=== PATIENT | female | born 1970 | race Caucasian/White ===

== ENCOUNTER 2023-09-04 16:16 | Emergency (ER) | payer OTHER, SELFPAY ==
[2023-09-04] VITALS (18 sets, daily range): BP systolic 107–137; BP diastolic 57–86; PULSE 78–95; RESP 16–20; TEMP 36.6; O2SAT 96–100
--- NOTE | ~2023-09-04 | XR_ITS ---
EXAM: XR hip LT 2V w AP pelvis DATE: 09/04/2023 16:49 HISTORY: fall, LT HIP PAIN . COMPARISON: None available. FINDINGS: Decreased mineralization. Fracture of the left acetabular roof with superior displacement of the dominant fracture fragments and left femoral head. No lytic or blastic lesion. The right hip j oint is maintained. No erosion or periosteal change. Soft tissues within normal limits. IMPRESSION: Left acetabular fracture. Recommend CT of the pelvis for further evaluation. Reviewed, dictated and finalized at location K. IMPRESSION: Left acetabular fracture. Recommend CT of the pelvis for further ev aluation.
--- NOTE | ~2023-09-04 | CT_ITS ---
EXAMINATION: CT brain wo con DATE: 09/04/2023 17:47 INDICATION: fall . TECHNIQUE: Computed tomography (CT) of the head was performed without intravenous contrast. The mA wa s adjusted according to patient size. Iterative reconstruction technique was employed. The dose-lengt h product was 832.33 mGy-cm. COMPARISON: None. FINDINGS: Motion artifact present, which required repeat imaging. No acute intracranial hemorrhage or extra-axial fluid collection. No hydrocephalus, mass, or herniation. No acute ischemic infarct. Unremarkable dural venous sinus attenuation. No acute osseous abnormality. The aerated spaces are clear. IMPRESSION: No acute intracranial process. Reviewed, dictated and finalized at location K.
--- NOTE | ~2023-09-04 | CT_ITS ---
EXAMINATION: CT pelvis wo con DATE: 09/04/2023 17:47 INDICATION: Left acetabular fracture. TECHNIQUE: Computed tomography (CT) of the pelvis was performed without intravenous contrast. Automat ed exposure control and iterative reconstruction technique were employed. The dose-length product was 310.36 mGy-cm. COMPARISON: X-ray pelvis, same date FINDINGS: Fractures of the superior and posterior rims of the acetabulum. Superior displacement of fr acture fragments. Fracture lines involve the medial acetabular wall. Superior displacement of left fe moral head. No left femoral fracture. No additional pelvic fracture detected. Small hematoma along th e left pelvic sidewall. Pelvic contents are otherwise unremarkable. IMPRESSION: Left acetabular fracture involving the superior, posterior rim, and medial wall. Superior dislocation of the left femoral head. Reviewed, dictated and finalized at location K. IMPRESSION: Left acetabular fracture involving the superior, posterior rim, and medial wall . Superior dislocation of the left femoral head.
--- NOTE | ~2023-09-04 | XR_ITS ---
EXAM: XR knee LT min 4V DATE: 09/04/2023 18:44 HISTORY: fall, best images possible . COMPARISON: None available. FINDINGS: Decreased mineralization. Transverse fracture of the inferior patella with 2 mm distractio n. No lytic or blastic lesion. Joint spaces are maintained. No erosion or periosteal change. Anterior soft tissue swelling. IMPRESSION: Minimally distracted transverse fracture of the inferior patella. Reviewed, dictated and finalized at location K.
--- NOTE | 2023-09-04 17:18 | ED.FALL ---
HPI - Fall General Chief Complaint: Fall Stated Complaint: hip pain post fall Time Seen by Provider: 09/04/23 17:05 History of Present Illness HPI Narrative: 52-year-old female with a history of type 2 diabetes presents to the emergency department for left hip pain status post fall. Patient states her mother was admitted to hospital and she was discharged today. Patient states she was walking her mother out of the hospital when the toe of her shoe got caught on the ground and she fell, landing on her left hip. She is reporting pain to her left hip and had left knee pain at the time of the fall that has since resolved. She believe she hit her head but is not sure. She denies neck pain or back pain, chest wall pain, abdominal pain, upper extremity injury, vision changes, focal numbness or weakness, loss of consciousness. She is not anticoagulated. Related Data Allergies Allergy/AdvReac Type Severity Reaction Status Date / Time No Known Allergies Allergy Unverified 01/28/18 12:42 Review of Systems Review of Systems: CONSTITUTIONAL: Denies fever, chills, or sweats. EYES: Denies visual changes, redness, or discharge. ENT: Denies rhinorrhea, congestion, sore throat, or otalgia. CARDIOVASCULAR: Denies chest pain, palpitations, or edema. RESPIRATORY: Denies cough or dyspnea. GASTROINTESTINAL: Denies abdominal pain, nausea, vomiting, or diarrhea. GENITOURINARY: Denies dysuria or hematuria. SKIN: Denies rash or itching. MUSCULOSKELETAL: See HPI NEUROLOGIC: Denies headache, numbness, or weakness. PSYCHIATRIC: Denies anxiety or depression. Exam Narrative: GENERAL: Well-appearing, well-nourished, and in no acute distress. HEAD: Normocephalic, atraumatic. EYES: PERRLA and EOMI. ENT: Nares clear, no rhinorrhea or epistaxis. Mucous membranes moist. NECK: No midline spinous tenderness, step-offs or deformities. BACK: No midline thoracolumbar spinous tenderness, step-offs or deformities. CHEST: Clear to auscultation. No respiratory distress. HEART: Regular rate and rhythm. No murmur heard. Normal peripheral pulses. ABDOMEN: Soft, nontender, nondistended, normal active bowel sounds. EXTREMITIES: Mild tenderness to the left hip on palpation, limited ROM of left hip secondary to pain. Full ROM of knee, no tenderness to palpation of left knee. No obvious deformities, edema or ecchymosis. Sensation intact throughout. DP pulses 2+. SKIN: Warm, dry, no rash. NEURO: No focal deficits. Alert and oriented x3. Moving all extremities spontaneously, sensation intact throughout Course Vital Signs Vital signs: Vital Signs Temperature 97.9 F 09/04/23 16:22 Pulse Rate 88 09/04/23 16:22 Respiratory Rate 16 09/04/23 16:22 Blood Pressure 107/57 L 09/04/23 16:22 Pulse Oximetry 99 09/04/23 16:22 Temperature 97.9 F 09/04/23 16:22 Pulse Rate 79 09/04/23 18:31 Respiratory Rate 20 09/04/23 18:31 Blood Pressure 125/82 09/04/23 18:31 Pulse Oximetry 100 09/04/23 18:45 MDM - Fall MDM Narrative Medical decision making narrative: 52-year-old female with history of type 2 diabetes presents to emergency department after a mechanical ground level fall that occurred prior to arrival. Triage vital significant for blood pressure 107/57, otherwise unremarkable. Exam is significant for the above. She is neurovascularly intact. CBC is unremarkable. Chemistries with a glucose of 237, normal bicarb and no anion gap. CT the brain shows no acute intracranial abnormality. X-ray of the left hip concerning for left acetabular fracture with recommendations for a pelvis CT. CT of the pelvis remarkable for left acetabular fracture involving the superior, posterior rim and medial wall. The superior dislocation of the left femoral head. Pending xr of L knee. Labs and imaging discussed with patient and family at bedside. Contacted Orthopedic surgery, Dr. Christianson, who advises transfer to [facility] and agrees that this will
[2023-09-04] MEDS: HYDROcodone/acetaminophen (*CRX) 5-325 MG TABLET 1 TAB PO (17:34)
[2023-09-04 17:55] LABS: Basophils Percent Auto 0.3 % (0.2-1.2); Eosinophils Absolute Auto 0.1 K/mm3 (0-0.3); Eosinophils Percent Auto 1.6 % (0-4.4); Hematocrit 37.1 % (37.0-47.0); Immature Granulocyte Absolute 0.03 K/mm3 (0.00-0.031); Immature Granulocyte Percent A 0.4 % (0-0.5); Lymphocytes Absolute Auto 1.91 K/mm3 (0.9-3.2); Lymphocytes Percent Auto 24.2 % (18.3-44.2); Mean Corpuscular HGB Conc 32.3 g/dl (32-36); Mean Corpuscular Hemoglobin 31.3 pg (26-34); Mean Corpuscular Volume 96.6 fl (80-100); Mean Platelet Volume 9.7 fl (7.4-10.4); Monocytes Absolute Auto 0.5 K/mm3 (0.1-0.6); Monocytes Percent Auto 6.2 % (2.6-8.5); Neutrophils Absolute Auto 5.3 K/mm3 (1.3-6.7); Neutrophils Percent Auto 67.3 % (45.5-73.1); Platelet Count Result 210 k/mm3 (150-375); Red Blood Count 3.84 M/mm3 (4.2-5.4); Red Cell Distribution Width 12.7 % (11.5-14.5); White Blood Count 7.9 K/mm3 (4.5-10.0)
[2023-09-04 18:04] LABS: Anion Gap 7 mmol/L (4-12); Blood Urea Nitrogen 12 mg/dL (7-17); Calcium 8.5 mg/dL (8.4-10.2); Carbon Dioxide 23 mmol/L (22-30); Chloride 108 mmol/L (98-107); Estimated CRCL calculation 89 ml/min; Estimated Glomerular Filt Rate > 60; Glucose 237 mg/dL (65-110); Potassium 3.8 mmol/L (3.4-5.0); Sodium 138 mmol/L (137-145)
[2023-09-04] MEDS: MORPHINE SULFATE (*CRX) 4 MG/ML INJ IV PUSH (19:07)
--- NOTE | 2023-09-04 19:39 | PC.NURSE ---
this rn assumed care of patient. this rn took patient report from REBECCA Webb.
== END 2023-09-04 22:49 | disposition short-term general hospital (02) ==
PROVIDERS: Emergency Provider Physician Assistant
DX: S32.472A Displaced fracture of medial wall of left acetabulum, initial encounter for closed fracture (principal); S32.492A Other specified fracture of left acetabulum, initial encounter for closed fracture; S82.032A Displaced transverse fracture of left patella, initial encounter for closed fracture; E11.9 Type 2 diabetes mellitus without complications; W01.0XXA Fall on same level from slipping, tripping and stumbling without subsequent striking against object, initial encounter
CPT/HCPCS: 36415; 70450; 72192; 73502; 73564; 80048; 85025; 96374; 99284; 99285; A9270; J2270